=== PATIENT | female | born 1985 | race Caucasian/White ===

== ENCOUNTER 2021-02-16 23:14 | Emergency (ER) | payer OTHER ==
[~2021-02-16] VITALS: Ht 162.6 cm; Wt 49.0 kg
[2021-02-16 23:14] VITALS: BP 113/71
--- NOTE | 2021-02-16 23:15 | NUR ---
PT AAOX4. AMBULATORY WITH STEADY GAIT. BIBSELF C/O HEAD PAIN FROM WALKING INTO CONCRETE WALL AT 6PM TODAY. ALSO C/O +DIZZY/NAUSEATED. PLACED IN BED 9 ON MONITOR AND PULSE OX.
== END 2021-02-17 00:27 | disposition home or self-care (01) ==
LOC: EDBD 23:19 → ER 23:19
DX: S09.8XXA Other specified injuries of head, initial encounter (principal); W22.8XXA Striking against or struck by other objects, initial encounter; Y93.01 Activity, walking, marching and hiking; Y92.89 Other specified places as the place of occurrence of the external cause; Y99.8 Other external cause status